=== PATIENT | male | born 1990 | race Caucasian/White ===

== ENCOUNTER 2019-04-20 14:56 | Emergency (ER) | payer OTHER ==
[~2019-04-20] VITALS: Ht 182.9 cm; Wt 78.0 kg
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
[2019-04-20 15:38] LABS: BASOPHILS # (AUTO) 0.11 x10^3/uL (0-0.1); BASOPHILS % (AUTO) 1 % (0-1); EOSINOPHILS # (AUTO) 0.13 x10^3/uL (0-0.4); EOSINOPHILS % (AUTO) 2 % (1-7); LYMPHOCYTES # (AUTO) 1.96 x10^3/uL (1-3.4); LYMPHOCYTES % (AUTO) 23 % (22-44); MD NO; MEAN CORPUSCULAR HEMOGLOBIN 32.3 pg (27.5-34.5); MEAN CORPUSCULAR HGB CONC 34.1 g/dL (33.2-36.2); MEAN CORPUSCULAR VOLUME 94.6 fL (81-97); MEAN PLATELET VOLUME 9.7 fL (7.4-10.4); MONOCYTES # (AUTO) 0.66 x10^3/uL (0.2-0.8); MONOCYTES % (AUTO) 8 % (2-9); NEUTROPHILS # (AUTO) 5.54 x10^3/uL (1.8-6.8); NEUTROPHILS % (AUTO) 66 % (42-75); PLATELET COUNT 189 x10^3/uL (130-400); RED BLOOD COUNT 4.89 x10^6/uL (4.38-5.82); RED CELL DISTRIBUTION WIDTH 14.1 % (9.4-14.8)
[2019-04-20 15:39] LABS: ALBUMIN 4.4 g/dL (3.4-5.0); ANION GAP 8 mmol/L (5-15); CALCIUM 9.2 mg/dL (8.5-10.1); CHLORIDE 107 mmol/L (98-107); CREATININE 1.07 mg/dL (0.7-1.3); SALICYLATE LEVEL < 1.7 mg/dL (2.8-20.0)
--- NOTE | 2019-04-20 16:28 | NUR ---
seen by manuela perez psych. pt cooperativ, compliant. walked to phone. sit in place. ordered tray. as
[2019-04-20] MEDS ORDERED: MORPHINE SULFATE 4 MG/ML, 1ML ONE (16:56)
[2019-04-20] MEDS ORDERED: TRAZODONE 50MG TABLET PO PRN (17:00)
[2019-04-20] MEDS ORDERED: HYDROXYZINE PAMOATE 50MG CAP PO PRN (17:00)
--- NOTE | 2019-04-20 17:27 | NUR ---
THROUGHPUT RN: PT REFUSED BY [facility].
--- NOTE | 2019-04-20 17:31 | NUR ---
THROUGHPUT RN: PACKET FAXED TO [facility].
--- NOTE | 2019-04-20 17:49 | NUR ---
FAMILY AT BEDSIDE VISITING. REQ THAT PT GO TO [facility] AND HOME NOT [place]. IAIN PERKINS WILL BE BACK IN AM, TOLD TO COMMUNICATE THIS WITH HIM. GIVEN DINNER. ORDERED HOSPITAL BED. VSS. CALM, COOPERATIVE, SPEAKING W/ FAMILY. SITTER IN PLACE. NO NEEDS EXPRESSED AT THIS TIME.
--- NOTE | 2019-04-20 19:05 | NUR ---
PT NOTIFIED OF [facility] MEDS. CALM, COOPERATIVE. SITTER AT BEDSIDE. VSS. REPORT TO GARDENIA CURIEL.
--- NOTE | 2019-04-20 19:08 | NUR ---
BS REPORT OF PT FROM VEENA SIMON AND ASSUMING CARE OF PT AT THIS TIME.
--- NOTE | 2019-04-20 20:33 | NUR ---
PT RESTING COMFORTABLY IN [facility] AT THIS TIME. SITTER OUTSIDE OF PT ROOM FOR DIRECT OBSERVATION OF PT. PT DENIES ANY NEEDS AT THIS TIME.
--- NOTE | 2019-04-20 21:40 | NUR ---
PT SLEEPING AT THIS TIME; SAMM. SITTER OUTSIDE OF PT ROOM FOR DIRECT OBSERVATION OF PT.
--- NOTE | 2019-04-20 22:35 | NUR ---
PT ASLEEP IN [facility] AT THIS TIME; SAMM. SITTER OUTSIDE OF PT ROOM FOR DIRECT OBSERVATION OF PT.
--- NOTE | 2019-04-20 23:45 | NUR ---
PT ASLEEP IN [facility] AT THIS TIME; SAMM. SITTER OUTSIDE OF ROOM AT THIS TIME FOR DIRECT OBSERVATION OF PT.
--- NOTE | 2019-04-21 03:28 | NUR ---
PT SLEEPING IN [facility] AT THIS TIME; NADN. WHEELER INSTRUCTED AGAIN ON NEED FOR URINE SAMPLE FROM PT. SITTER OUTSIDE OF ROOM FOR DIRECT OBSERVATION OF PT AT THIS TIME.
[2019-04-21 06:03] VITALS: BP 92/55
--- NOTE | 2019-04-21 06:04 | NUR ---
PT AWAKE AND OUT OF GURNEY AT THIS TIME. PT DENIES THE NEED TO USE THE RESTROOM. VS UPDATED IN EMR. VSS AT THIS TIME. PT HAS SITTER OUTSIDE OF ROOM FOR DIRECT OBSERVATION OF PT.
--- NOTE | 2019-04-21 07:04 | NUR ---
REPORT OF PT TO VEENA LARA. ALL QUESTIONS ANSWERED.
--- NOTE | 2019-04-21 07:17 | NUR ---
BS REPORT FROM GARDENIA CURIEL, ASSUME CARE OF PT AT THIS TIME. PT SLEEPING AT THIS TIME, VSS. SITTER AT DOORWAY.
--- NOTE | 2019-04-21 08:11 | NUR ---
MEAL TRAY PROVIDED. PT COOPERATIVE WITH CARE. SITTER REMAINS AT DOORWAY FOR CLOSE OBS.
--- NOTE | 2019-04-21 09:55 | NUR ---
CONFIRM WITH VEGA CATHERINE PT TO BE ON MODERATE RISK PRECAUTIONS. SITTER REMAINS AT DOORWAY FOR CLOSE OBS. PT SLEEPING INTERMITTENTLY, AWARE OF NEED FOR UA. Addendum: 04/21/19 at 1105 by HOLLEY PT REMOVED FROM MONITORING DEVICES, GARAGE DOORS DOWN X 2. BELONGINGS REMOVED AND PLACED IN 2 BELONGING BAGS AND TO LOCKER. SITTER AT DOORWAY.
--- NOTE | 2019-04-21 10:55 | NUR ---
URINE COLLECTED/SENT TO LAB.
--- NOTE | 2019-04-21 11:35 | NUR ---
CALL TO LAB INQUIRING ON DELAY FOR UA. PER IMPREGNATOR ELECTROLYTIC [employer]ACITORS, STARTING PROCESS OF ANALYSIS NOW.
[2019-04-21] MEDS ORDERED: hydrOXyzine 50MG TABLET ONE (11:39)
[2019-04-21 11:53] LABS: AMPHETAMINE SCREEN, URINE Negative (Negative); BARBITURATE SCREEN, URINE Negative (Negative); BENZODIAZEPINE SCREEN, URINE Negative (Negative); CANNABINOID SCREEN, URINE Positive (Negative); COCAINE SCREEN, URINE Positive (Negative); METHADONE SCREEN, URINE Negative (Negative); OPIATE SCREEN, URINE Negative (Negative)
--- NOTE | 2019-04-21 11:53 | NUR ---
PT MEDICATED PER EMAR FOR ANXIETY. MEAL TRAY ORDERED, PT COOPERATIVE WITH CARE. SITTER AT DOORWAY.
--- NOTE | 2019-04-21 12:36 | NUR ---
PIPELINE SUPERINTENDENT IN TO SEE PT.
--- NOTE | 2019-04-21 13:48 | NUR ---
CIVIL PREPAREDNESS TRAINING OFFICER FINISHED WITH REASSESSMENT. MEAL TRAY PROVIDED. SITTER AT DOORWAY.
[2019-04-21] MEDS ORDERED: QUETIAPINE 25MG TABLET PO SCH (14:00)
[2019-04-21] MEDS ORDERED: QUETIAPINE 25MG TABLET ONE (14:05)
--- NOTE | 2019-04-21 14:42 | NUR ---
BELONGING BAGS X 2 PROVIDED TO PT. SW TO FINISH WITH SCRIPTS AND THEN PT TO BE DISCHARGED.
--- NOTE | 2019-04-21 15:08 | NUR ---
PT UNABLE TO GET IN CONTACT WITH , TAXI VOUCHER PROVIDED FOR RIDE HOME.
== END 2019-04-21 15:09 | disposition home or self-care (01) ==
LOC: ED 15:48
DX: T58.92XA Toxic effect of carbon monoxide from unspecified source, intentional self-harm, initial encounter (principal); Z00.00 Encounter for general adult medical examination without abnormal findings; Y92.89 Other specified places as the place of occurrence of the external cause
CPT/HCPCS: 36415; 80048; 80307; 82040; 82375; 85025; 99284